=== PATIENT | female | born 1960 | race Two or more races ===

== ENCOUNTER 2019-06-24 11:12 | Outpatient (CLI) | payer OTHER ==
[~2019-06-24 11:12] MED LIST: CLEOCIN HCL300 MG PO; LEVAQUIN500 MG PO; PREVACID30 MG PO
== END 2019-06-24 11:28 | disposition home or self-care (01) ==
LOC: LAB 11:12
DX: D51.3 Other dietary vitamin B12 deficiency anemia (principal); D51.1 Vitamin B12 deficiency anemia due to selective vitamin B12 malabsorption with proteinuria; D72.818 Other decreased white blood cell count; I10 Essential (primary) hypertension; D50.8 Other iron deficiency anemias

== ENCOUNTER 2020-11-08 09:58 | Outpatient (CLI) | payer OTHER | END 2020-11-08 10:12 | disposition home or self-care (01) | LOC: RX STUDY 09:58 | PROVIDERS: ATTEND Internal Medicine | DX: R07.89 Other chest pain (principal) ==

== ENCOUNTER 2021-10-21 10:38 | Outpatient (CLI) | payer OTHER | END 2021-10-21 10:51 | disposition home or self-care (01) | LOC: RAD 10:38 | PROVIDERS: ATTEND Colon & Rectal Surgery | DX: K59.00 Constipation, unspecified (principal) ==